=== PATIENT | female | born 1985 | race Caucasian/White ===

== ENCOUNTER 2017-04-07 15:56 | Inpatient (IN) | payer MEDICAID ==
[~2017-04-07] VITALS: Ht 157.5 cm; Wt 114.1 kg
[~2017-04-07 15:56] MED LIST: AMOXICILLIN 50500 MG PO; AUGMENTIN 875 M1 TAB PO; CLINDAMYCIN HC300 MG PO; CORTISPORIN EAR10 ML OT; CORTISPORIN OTI10 ML OT; FERROUS SU325 MG/TAB PO; LEXAPRO 10MG10 MG PO; LORTAB 5/500 501 TAB PO; LORTAB 7.5/5001 TAB PO; MACROBID 1100 MG/CAP PO; MAGIC MOUTH PO; METRONIDAZOLE500 MG PO; MOTRIN 600600 MG/TAB PO; MOTRIN800 MG PO; NO HOME MEDICATIONS; NORCO 325 MG-51 TAB PO; ORTHO TRI-CYCLE1 TAB PO; PEN-VEE K500 MG PO; PEPCID 20MG TAB20 MG PO; PERCOCET 325 MG1 TA2 PO; PHENERGAN W/CO120 ML PO; PREVACID30 MG PO; ULTRAM50 MG PO; WELLBUTRIN PO; [UNRECOGNIZED DRUG - OTHER]; [UNRECOGNIZED DRUG - REMARK]; vitamins
[2017-05-07] MEDS ORDERED: LEXAPRO 5MG5 MG PO (16:09)
[2017-05-07] MEDS ORDERED: MULTI VITAMINS1 TAB PO (16:10)
[2017-05-19] VITALS (18 sets, daily range): BP systolic 82–127; BP diastolic 50–75; PULSE 70–92; TEMP 97.8–98.1
[2017-05-19] MEDS ORDERED: PRENATAL1 TA7 PO (11:23)
[2017-05-19 11:36] LABS: BASO % 0.3 % (0.0-2.0); EOS % 0.4 % (0-4.0); GRAN # 6.6 (1.4-6.5); GRAN % 68.5 % (42.2-75.2); LYMPH # 2.4 (1.2-3.4); LYMPH % 25.3 % (20.0-51.0); MEAN CELL VOLUME 84 fl (80.0-100.0); MEAN CORPUSCULAR HGB CONC 33 g/dl (33.0-37.0); MEAN PLATELET VOLUME 11.3 fl (7.4-10.4); MONO # 0.5 (0.1-0.6); MONO % 5.1 % (1.7-9.3); PLATELET COUNT 291 K/mm3 (130-400); RED BLOOD COUNT 3.88 M/mm3 (4.10-5.30); REDCELL DISTRIBUTION WIDTH-CV 14.3 % (11.5-14.5); WHITE BLOOD COUNT 9.7 K/mm3 (4.8-10.8)
[2017-05-19 11:43] LABS: HEMATOCRIT 32.5 % (37.0-47.0); HEMOGLOBIN 10.8 g/dl (12.5-16.0); MEAN CORPUSCULAR HEMOGLOBIN 28 pg (27.0-31.0)
[2017-05-20 02:00] VITALS: BP 109/56; PULSE 65; TEMP 98.1
[2017-05-20] MEDS ORDERED: PERCOCET 325 MG1 TA2 PO (03:51)
[2017-05-20] MEDS ORDERED: IBU600 MG PO (03:51)
[2017-05-20 07:04] LABS: BASO % 0.3 % (0.0-2.0); EOS # 0.1 (0.0-0.7); EOS % 0.6 % (0-4.0); GRAN # 7.4 (1.4-6.5); GRAN % 72.9 % (42.2-75.2); MEAN CELL VOLUME 85 fl (80.0-100.0); MEAN CORPUSCULAR HGB CONC 33 g/dl (33.0-37.0); MEAN PLATELET VOLUME 10.5 fl (7.4-10.4); MONO # 0.6 (0.1-0.6); MONO % 5.8 % (1.7-9.3); PLATELET COUNT 214 K/mm3 (130-400); RED BLOOD COUNT 3.47 M/mm3 (4.10-5.30); REDCELL DISTRIBUTION WIDTH-CV 14.2 % (11.5-14.5); WHITE BLOOD COUNT 10.1 K/mm3 (4.8-10.8)
[2017-05-20 07:05] LABS: HEMATOCRIT 29.4 % (37.0-47.0); HEMOGLOBIN 9.6 g/dl (12.5-16.0); MEAN CORPUSCULAR HEMOGLOBIN 28 pg (27.0-31.0)
[2017-05-20 09:00] VITALS: BP 104/55; PULSE 69; TEMP 98.1
[2017-05-20 16:30] VITALS: BP 92/51; PULSE 80; TEMP 98.7
[2017-05-20 19:55] VITALS: BP 100/62; PULSE 85; TEMP 98.3
[2017-05-21 03:00] VITALS: BP 116/64; PULSE 83; TEMP 98.3
[2017-05-21 08:00] VITALS: BP 103/64; PULSE 83; TEMP 98.6
[2017-05-21 16:44] VITALS: BP 112/56; PULSE 73; TEMP 97.8
[2017-05-21 20:35] VITALS: BP 107/61; PULSE 74; TEMP 98.6
[2017-05-22 09:00] VITALS: BP 117/80; PULSE 73; TEMP 97.9
== END 2017-05-22 12:32 | disposition home or self-care (01) | DRG 766 ==
LOC: LDRO → EDSTATUS 05-11 08:49 → LDRO 05-11 15:56 → LDR 05-19 09:14 → OB 05-19 10:26
PROVIDERS: Obstetrics & Gynecology
PROC: 10D00Z1 Extraction of Products of Conception, Low, Open Approach (ICD-10-PCS; principal; 2017-05-19)
PROC: 0UT50ZZ Resection of Right Fallopian Tube, Open Approach (ICD-10-PCS; 2017-05-19)
DX: O34.211 Maternal care for low transverse scar from previous cesarean delivery (principal); N85.8 Other specified noninflammatory disorders of uterus; O69.81X0 Labor and delivery complicated by cord around neck, without compression, not applicable or unspecified; O99.824 Streptococcus B carrier state complicating childbirth; Z3A.39 39 weeks gestation of pregnancy; Z37.0 Single live birth
CPT/HCPCS: J0690; J1885; J2175; J2270; J2405; J2590; J7120

== ENCOUNTER → 2017-05-07 | Outpatient (CLI) | payer MEDICAID ==
[~2017-05-07] VITALS: Ht 157.5 cm; Wt 113.6 kg
[~2017-05-07] MED LIST changes: +IBU600 MG PO; +LEXAPRO 5MG5 MG PO; +MULTI VITAMINS1 TAB PO; +PRENATAL1 TA7 PO
[2017-05-07 16:00] VITALS: BP 119/56; PULSE 79; TEMP 98.1
[2017-05-07 16:03] VITALS: BP 119/56; PULSE 79; TEMP 98.1
== END ==
LOC: LDRO 15:37 → LDR 15:45 → LDRO 17:00 → LDR 17:00 → LDRO 05-09 15:45
DX: Z34.83 Encounter for supervision of other normal pregnancy, third trimester (principal); Z3A.37 37 weeks gestation of pregnancy
CPT/HCPCS: OP

== ENCOUNTER 2017-05-15 21:40 | Outpatient (CLI) | payer MEDICAID ==
[~2017-05-15] VITALS: Ht 157.5 cm; Wt 114.5 kg
[~2017-05-15 21:40] MED LIST changes: -IBU600 MG PO; -PRENATAL1 TA7 PO
[2017-05-15 22:01] VITALS: BP 121/68; PULSE 91; TEMP 98
[2017-05-15 22:30] VITALS: BP 121/68; PULSE 91; TEMP 98
[2017-05-15 22:37] VITALS: TEMP 98
[2017-05-15 23:00] VITALS: BP 110/71; PULSE 82
[2017-05-15 23:05] VITALS: BP 116/71; PULSE 80
== END 2017-05-15 23:11 | disposition home or self-care (01) ==
LOC: LDRO 21:40
DX: O99.89 Other specified diseases and conditions complicating pregnancy, childbirth and the puerperium (principal); M54.9 Dorsalgia, unspecified; Z3A.38 38 weeks gestation of pregnancy

== ENCOUNTER 2018-10-10 05:48 | Day surgery (SDC) | payer MEDICAID ==
[2018-10-10] VITALS (11 sets, daily range): BP systolic 94–157; BP diastolic 60–108; PULSE 69–94; TEMP 97.7–98.6
[~2018-10-10] VITALS: Ht 154.9 cm; Wt 119.2 kg
[~2018-10-10 05:48] MED LIST changes: +IBU600 MG PO; +PRENATAL1 TA7 PO
[2018-10-11 03:00] VITALS: BP 125/63; PULSE 73; TEMP 98.4
[2018-10-11] MEDS ORDERED: PERCOCET 325 MG1 TA2 PO (08:46)
[2018-10-11] MEDS ORDERED: IBU600 MG PO (08:46)
[2018-10-11 08:50] VITALS: BP 115/70; PULSE 88; TEMP 98.7
== END 2018-10-11 13:20 | disposition home or self-care (01) ==
LOC: SDCO 05:48 → OB 10:00 → SDCO 10-11 13:20
DX: N92.0 Excessive and frequent menstruation with regular cycle (principal); N94.5 Secondary dysmenorrhea; N80.0 Endometriosis of uterus; E66.9 Obesity, unspecified; Z98.51 Tubal ligation status; N83.201 Unspecified ovarian cyst, right side; F41.9 Anxiety disorder, unspecified; F32.9 Major depressive disorder, single episode, unspecified; D64.9 Anemia, unspecified; K21.9 Gastro-esophageal reflux disease without esophagitis
CPT/HCPCS: OP; A4314; J0690; J1885; J2405; J2550; J2704; J2710; J3010; J7120

== ENCOUNTER → 2019-07-10 | Outpatient (CLI) | payer MEDICAID ==
[~2019-07-10] VITALS: Ht 154.9 cm; Wt 119.6 kg
[2019-07-10 12:43] VITALS: BP 165/104; PULSE 77
[2019-07-10 14:15] VITALS: BP 150/105; PULSE 81
--- NOTE | 2019-07-10 14:30 | NUR ---
PT STATES HER ANXIETY IS VERY HIGH. DURING THE PROCEDURE BP WAS IN 120'S AND PT STATES THAT IS WHERE IT USUALLY IS. PT IS STILL SOMEWHAT GROGGY, BUT DOING BETTER
--- NOTE | 2019-07-10 14:45 | NUR ---
PT AWAKE. TAKEN TO LOBBY IN WHEELCHAIR TO MOM. PT WAS TAKEN OUT TO THE POV AND ASSISTED INTO VEHICLE. MOM PRESENT AND WILL DRIVE
== END ==
LOC: COL.RAD 12:06
DX: G44.209 Tension-type headache, unspecified, not intractable (principal)
CPT/HCPCS: J2704

== ENCOUNTER → 2024-08-16 | Outpatient (CLI) | payer MEDICAID ==
[~2024-08-16] VITALS: Ht 154.9 cm; Wt 103.9 kg
[~2024-08-16] MED LIST changes: +CATAPRES 0.1MG0.1 MG PO; +DULCOLAX STOOL100 MG PO; +LAMICTAL 100MG100 MG PO; +LR 1,000 ML IV SCH; +Lidocaine PF 2% (20 MG/ML) 5 ML VIAL ONE; +Midazolam 2 MG/2 ML VIAL ONE; +ZEPBOUND5 MG/0.5 M SQ; +fentaNYL 50 MCG/ML 2 ML VIAL ONE
[2024-08-16 10:05] VITALS: BP 114/78; PULSE 69; TEMP 97.8
--- NOTE | 2024-08-16 11:10 | NUR ---
PATIENT DECLINES TO TAKE A TEST. PATIENT STATES SHE HAS HAD A HYSTERECTOMY AND CANNOT GET ANYMORE. ANESTHESIA KACIE FISHMAN IS AWARE OF THIS AND GIVES GO AHEAD FOR MRI WITH SEDATION.
[2024-08-16 11:20] VITALS: BP 104/60; PULSE 79
[2024-08-16 11:25] VITALS: BP 105/68; PULSE 70
[2024-08-16 11:40] VITALS: BP 104/67; PULSE 61
[2024-08-16 11:55] VITALS: BP 103/70; PULSE 61
[2024-08-16 12:10] VITALS: BP 103/70; PULSE 64
--- NOTE | 2024-08-16 12:44 | NUR ---
1230--PATIENT HAS COMPLETED HER RECOVERY PERIOD. PATIENT IS AWAKE AND ALERT AND GOT HERSELF DRESSED. IV REMOVED WITHOUT ANY ISSUES. PATIENT HAS ALL OF HER PERSONAL ITEMS WITH HER. ESCORTED PATIENT VIA WHEELCHAIR OUT TO PATIENT ENTRANCE AND PATIENT GOT IN HER VEHICLE FRONT PASSENGER SEAT WITHOUT ANY ISSUES OR ASSISTANCE. ALL NEEDS MET.
== END ==
LOC: COL.RAD 09:41
DX: M50.30 Other cervical disc degeneration, unspecified cervical region (principal); M89.38 Hypertrophy of bone, other site; M48.02 Spinal stenosis, cervical region
CPT/HCPCS: J2250; J2704; J3010; J7120